=== PATIENT | female | born 2000 | race African-American/Black ===

== ENCOUNTER 2021-02-18 18:20 | Emergency (ER) | payer OTHER ==
[2021-02-18 21:38] LABS: BASOPHIL 0.3 % (0-2); EOSINOPHIL 1.7 % (0-5); HCT 33.3 % (37.0-47.0); HGB 10.9 g/dl (12.5-16.0); MCHC 32.7 g/dL (32.0-36.0); MCV 91.7 fL (78.0-100.0); MONOCYTE 6.9 % (0-12); MPV 9.3 fL (6.0-9.5); NEUTROPHIL 66.1 % (41-80); NRBC 0; PLT 310 K/uL (150-400); RBC 3.63 M/uL (4.20-5.40); RDW 13.4 % (11.5-14.0); WBC 3.6 K/uL (4.0-10.5)
[2021-02-18 22:10] LABS: ALBUMIN 3.8 g/dL (3.4-5.0); BILIRUBIN - TOTAL 0.2 mg/dL (0.2-1.0); BUN/CREAT RATIO (CALC) 10.5 RATIO; CREATININE 0.76 mg/dL (0.51-0.95); FT4 (FREE T4) 0.9 ng/dL (0.76-1.46); GLOBULIN (CALCULATION) 3.8 g/dL; POTASSIUM 4.3 mmol/L (3.5-5.1); TOTAL PROTEIN 7.6 g/dL (6.4-8.2)
== END 2021-02-18 21:20 | disposition left against medical advice (07) ==
LOC: FER 18:20
PROVIDERS: Emergency Medicine Emergency Medical Services
DX: R41.3 Other amnesia (principal); F17.210 Nicotine dependence, cigarettes, uncomplicated
CPT/HCPCS: 36415; 70450; 71045; 80053; 84439; 84443; 84484; 85025